=== PATIENT | female | born 1990 | race Caucasian/White ===

== ENCOUNTER 2016-06-25 12:22 | Inpatient (IN) | payer OTHER, SELFPAY ==
[2016-06-25] VITALS (42 sets, daily range): BP systolic 72–135; BP diastolic 38–88
[~2016-06-25] VITALS: Ht 167.6 cm; Wt 103.0 kg
[2016-06-25] MEDS ORDERED: ACET50TA PO (12:51)
[2016-06-25] MEDS ORDERED: VITAPRTA PO (12:51)
[2016-06-25] MEDS ORDERED: LOVE1INJ SC (13:18)
[2016-06-25] MEDS ORDERED: ASPI1TAB PO (13:18)
[2016-06-25] MEDS ORDERED: LR 1,000 ML IV SCH (13:25)
[2016-06-25] MEDS ORDERED: LACTATED RINGER'S 1000 ML IV STA (13:25)
[2016-06-25] MEDS: LR 1,000 ML IV SCH ×2 (13:25→21:25)
[2016-06-25] MEDS ORDERED: OXYTOCIN DRIP 30 UNITS in APPROPRIATE DILUENT 1 EA IV SCH (13:30)
[2016-06-25 14:19] LABS: MEAN CORPUSCULAR HEMOGLOBIN 21.2 pg (27.0-33.0); MEAN CORPUSCULAR HGB CONC 30.8 g/dl (32.0-36.5); MEAN CORPUSCULAR VOLUME 68.7 fl (80.0-96.0); RED CELL DISTRIBUTION WIDTH 15.9 % (11.5-14.5); WHITE BLOOD COUNT 9.3 K/mm3 (4.0-10.0)
[2016-06-25] MEDS ORDERED: FENTANYL 2MCG/ML ROPIVACAINE 0.2% IN 0.9% NACL 200ML IVBAG As Ordered ONE (19:02)
[2016-06-25] MEDS ORDERED: diphenhydrAMINE INJ 50MG/ML VIAL (J1200) IV PRN (20:30)
[2016-06-25] MEDS ORDERED: REFRIGERATOR IV KEYS XX PRN (20:30)
[2016-06-25] MEDS ORDERED: FENTANYL/ROPIVACAINE/NACL BAG 200 ML EPIDURAL SCH (20:30)
[2016-06-25] MEDS ORDERED: EPIDURAL COMMENT XX SCH (20:30)
[2016-06-25] MEDS ORDERED: NALOXONE INJ 0.4 MG/1 ML VIAL (J2310) IV PRN (20:30)
[2016-06-25] MEDS ORDERED: LACTATED RINGER'S 1000 ML IV PRN (20:30)
[2016-06-25] MEDS ORDERED: ePHEDrine SULFATE 25 MG/5 ML(5MG/ML) SYRINGE IV PRN (20:30)
[2016-06-25] MEDS ORDERED: EPIDURAL/PCA KEYS XX PRN (20:30)
[2016-06-25] MEDS ORDERED: ONDANSETRON 4MG/2ML VIAL (J2405) IV PRN ×2 (20:30→22:15)
[2016-06-25] MEDS ORDERED: RHOGAM 300 MCG (1500 IU) INJ (J2790) IM SCH (22:15)
[2016-06-25] MEDS ORDERED: OXYTOCIN INJ 10 UNITS/ML VIAL (J2590) IM ONE (22:15)
[2016-06-25] MEDS ORDERED: METHYLERGONOVINE MALEATE 0.2 MG TAB PO PRN (22:15)
[2016-06-25] MEDS ORDERED: miSOPROStol 25 MCG 1/4 TAB (S0191) PR ONE (22:15)
[2016-06-25] MEDS ORDERED: PROMETHAZINE 25 MG TAB PO PRN (22:15)
[2016-06-25] MEDS ORDERED: MEASLES,MUMPS,RUBELLA VACCINE INJ (MMR-II) (90707) SC SCH (22:15)
[2016-06-25] MEDS ORDERED: DIBUCAINE 1% OINTMENT 30GM TOP PRN (22:15)
[2016-06-25] MEDS ORDERED: DOCUSATE SODIUM 100 MG CAP PO PRN (22:15)
[2016-06-25] MEDS: ACETAMINOPHEN 500 MG TAB PO PRN (22:23)
[2016-06-26] VITALS (7 sets, daily range): BP systolic 102–133; BP diastolic 56–80
[2016-06-26 01:16] LABS: MEAN CORPUSCULAR HGB CONC 30.3 g/dl (32.0-36.5); MEAN CORPUSCULAR VOLUME 69.4 fl (80.0-96.0); RED CELL DISTRIBUTION WIDTH 15.8 % (11.5-14.5); WHITE BLOOD COUNT 15.9 K/mm3 (4.0-10.0)
[2016-06-26] MEDS: PRENATAL VITAMIN TAB PO SCH (07:23)
[2016-06-26] MEDS: IBUPROFEN 800 MG TAB PO PRN ×2 (07:23→19:27)
[2016-06-26 11:54] LABS: DIFF SLIDE NUMBER 89; MEAN CORPUSCULAR HEMOGLOBIN 21.3 pg (27.0-33.0); MEAN CORPUSCULAR HGB CONC 30.9 g/dl (32.0-36.5); PLATELET COUNT, AUTOMATED 238 k/mm3 (150-450); RED CELL DISTRIBUTION WIDTH 16.2 % (11.5-14.5)
[2016-06-26 13:30] LABS: ANISOCYTOSIS 2+; BASOPHILS 1 % (0-4); EOSINOPHILS 1 % (0-5); POIKILOCYTOSIS 1+
[2016-06-26 13:31] LABS: MICROCYTOSIS 2+
[2016-06-27] VITALS (9 sets, daily range): BP systolic 106–136; BP diastolic 58–84
[2016-06-27] MEDS: ACETAMINOPHEN 500 MG TAB PO PRN (00:37)
[2016-06-27] MEDS ORDERED: miSOPROStol 200 MCG TAB (S0191) PR ONE (02:30)
[2016-06-27 07:01] LABS: BASO % 0.5 % (0.0-1.0); EOS # 0.1 K/mm3 (0.0-0.50); EOS % 1.3 % (0.0-3.0); LARGE UNSTAINED CELL # 0.1 K/mm3 (0.0-0.4); LARGE UNSTAINED CELL % 1.1 % (0.0-4.0); LYMPH # 2.2 K/mm3 (1.5-6.5); LYMPH % 19.6 % (24.0-44.0); MEAN CORPUSCULAR HEMOGLOBIN 23.1 pg (27.0-33.0); MEAN CORPUSCULAR HGB CONC 31.6 g/dl (32.0-36.5); MONO # 0.5 K/mm3 (0.0-0.8); MONO % 4.7 % (0.0-5.0); NEUTROPHILS # 7.6 K/mm3 (1.8-7.7); NEUTROPHILS % 72.7 % (36.0-66.0); PLATELET COUNT, AUTOMATED 237 k/mm3 (150-450); RED CELL DISTRIBUTION WIDTH 17.8 % (11.5-14.5); WHITE BLOOD COUNT 10.4 K/mm3 (4.0-10.0)
[2016-06-27] MEDS: PRENATAL VITAMIN TAB PO SCH (08:16)
[2016-06-27] MEDS ORDERED: NS 1,000 ML IV SCH (10:43)
[2016-06-27] MEDS ORDERED: diphenhydrAMINE 25 MG CAP PO ONE (10:45)
[2016-06-27] MEDS: IBUPROFEN 800 MG TAB PO PRN (14:05)
[2016-06-27] MEDS ORDERED: COLA100C3 PO (18:33)
[2016-06-27] MEDS ORDERED: IBUP-1114 PO (18:33)
== END 2016-06-27 18:49 | disposition home or self-care (01) | DRG 774 ==
LOC: M LDI 12:22 → M OBS 06-26 01:52
PROVIDERS: ADMIT Student in an Organized Health Care Education/Training Program; ATTEND Student in an Organized Health Care Education/Training Program
PROC: 10E0XZZ Delivery of Products of Conception, External Approach (ICD-10-PCS; principal; 2016-06-25)
PROC: 3E033VJ Introduction of Other Hormone into Peripheral Vein, Percutaneous Approach (ICD-10-PCS; 2016-06-25)
PROC: 30233N1 Transfusion of Nonautologous Red Blood Cells into Peripheral Vein, Percutaneous Approach (ICD-10-PCS; 2016-06-26)
DX: O72.1 Other immediate postpartum hemorrhage (principal); Z37.0 Single live birth; Z3A.39 39 weeks gestation of pregnancy; Z87.59 Personal history of other complications of pregnancy, childbirth and the puerperium

== ENCOUNTER 2017-02-23 11:48 | Day surgery (SDC) | payer OTHER ==
[~2017-02-23] VITALS: Ht 167.6 cm; Wt 95.9 kg
[~2017-02-23 11:48] MED LIST: ACET50TA PO; ASPI1TAB PO; COLA100C5 PO; IBUP-1114 PO; LOVE1INJ SC; VITAPRTA PO
[2017-02-23] MEDS ORDERED: LR 1,000 ML IV ONE (12:00)
[2017-02-23] MEDS ORDERED: LIDOCAINE 1% MDV 20ML VIAL SQ PRN (12:00)
[2017-02-23] MEDS ORDERED: no medications (12:29)
[2017-02-23 12:33] LABS: MEAN CORPUSCULAR HEMOGLOBIN 24.6 pg (27.0-33.0); MEAN CORPUSCULAR HGB CONC 31.6 g/dl (32.0-36.5); MEAN CORPUSCULAR VOLUME 77.9 fl (80.0-96.0); PLATELET COUNT, AUTOMATED 391 10^3/uL (150-450); WHITE BLOOD COUNT 5.6 10^3/uL (4.0-10.0)
[2017-02-23 12:49] LABS: CONTROL LINE HCG INT CTR LINE PRESENT
[2017-02-23] MEDS ORDERED: ALBUTEROL SULFATE 2.5 MG/0.5 ML INH NEB SOLN INH ONE (13:00)
[2017-02-23] MEDS: BUPIVACAINE HCL 0.25% 30 ML VIAL As Ordered ONE ×2 (13:26→15:00)
[2017-02-23] MEDS ORDERED: dexameTHASONE 4 MG/ML 1ML VIAL (J1100) As Ordered ONE (13:56)
[2017-02-23] MEDS ORDERED: fentaNYL 100 MCG/2 ML INJECTION (J3010) As Ordered ONE (13:56)
[2017-02-23] MEDS ORDERED: MIDAZOLAM INJ 2 MG/2 ML VIAL (J2250) As Ordered ONE (13:56)
[2017-02-23] MEDS ORDERED: PROPOFOL 500 MG/50 ML VIAL As Ordered ONE (13:56)
[2017-02-23] MEDS ORDERED: GLYCOPYRROLATE INJ 0.2 MG/ML 2 ML VIAL As Ordered ONE ×2 (14:03→14:28)
[2017-02-23] MEDS ORDERED: NEOSTIGMINE 10 MG/10 ML VIAL (J2710) As Ordered ONE (14:03)
[2017-02-23] MEDS ORDERED: LIDOCAINE 2% INJ 100 MG/5 ML SDV (FOR ANES.) As Ordered ONE (14:04)
[2017-02-23] MEDS ORDERED: ONDANSETRON 4MG/2ML VIAL (J2405) As Ordered ONE ×2 (14:05→16:50)
[2017-02-23] MEDS ORDERED: ROCURONIUM BROMIDE 50 MG/5 ML VIAL As Ordered ONE (14:05)
[2017-02-23] MEDS ORDERED: ePHEDrine SULFATE 25 MG/5 ML(5MG/ML) SYRINGE As Ordered ONE (14:15)
[2017-02-23] MEDS ORDERED: DESFLURANE 240 ML INHALANT As Ordered ONE (14:17)
[2017-02-23] MEDS ORDERED: KETOROLAC 60 MG/2 ML VIAL (J1885) As Ordered ONE (14:35)
[2017-02-23] MEDS ORDERED: HYDROmorphone HCL 2 MG/ML 1ML VIAL (J1170) As Ordered ONE (14:40)
[2017-02-23] MEDS ORDERED: HYDROmorphone HCL 1 MG/ML SYRINGE (J1170) IV PRN (15:30)
[2017-02-23] MEDS ORDERED: LR 1,000 ML IV SCH (15:30)
[2017-02-23] MEDS ORDERED: PERCOCET 5MG/325MG TAB PO PRN (15:30)
[2017-02-23] MEDS ORDERED: fentaNYL 100 MCG/2 ML INJECTION (J3010) IV PRN (15:30)
[2017-02-23] MEDS ORDERED: ONDANSETRON 4MG/2ML VIAL (J2405) IV PRN (15:30)
[2017-02-23 18:52] VITALS: BP 106/51
--- NOTE | 2017-02-24 07:30 | RO ---
DATE OF PROCEDURE: 02/23/2017 PREOPERATIVE DIAGNOSIS: Satisfied parity. POSTOPERATIVE DIAGNOSIS: Satisfied parity. OPERATION PERFORMED: Bilateral laparoscopic salpingectomy. SURGEON: Dr. Clau Coreas PRACTICAL NURSE CLINICAL COORDINATOR: Dr. Alexandro Bernard CLINICAL SERVICE: SAFETY COUNSELOR. ANESTHESIA: GETA MATERIAL FORWARDED TO LABORATORY: Fallopian tubes bilateral. DESCRIPTION OF FINDINGS: Laparoscopic findings included a normal appearing uterus, fallopian tubes, ovaries, liver edge and gallbladder. There was a small window in the peritoneum in the posterior cul-de-sac, possibly resultant of endometriosis, though no specific lesions were noted. INFECTION CLASSIFICATION: 2. ESTIMATED BLOOD LOSS: 5 mL. INTRAVENOUS (IV) FLUIDS: 1100 mL lactated Ringers. URINE OUTPUT: 250 mL of clear yellow urine. INDICATION FOR OPERATION: Tania is a 26-year-old, (G) 5, para (P) 3-0-3-3, with satisfied parity. I met with her in the clinic and she stated her desire for permanent sterilization. We discussed all contraception options in detail, especially emphasizing long acting reversible contraception, and she declined all of these and strongly desires permanent sterilization. Her history is significant for three term vaginal deliveries and one nonviable delivery at 21 weeks resultant of placental abruption. With two of her term vaginal deliveries , she had hemorrhage and blood transfusions. She gave great consideration to the permanent nature of this procedure and presented to her preoperative appointment still desiring to proceed. DESCRIPTION OF OPERATION: After informed consent, the patient was taken to the operating room. General endotracheal anesthesia was established and the patient was placed in low lithotomy position. The patient was prepped and draped in the usual sterile fashion. She was placed in Trendelenburg position and a Malagon catheter was placed. Bivalved speculum was placed in the vagina and visualization of the cervix was obtained. Anterior lip of the cervix was grasped with a single tooth tenaculum. Uterus was sounded to 11 cm. The SmartCloud uterine manipulator was then placed through the cervix into the uterus. The tenaculum was removed with site hemostasis noted and the bivalved speculum was removed. At that point, she was taken out of Trendelenburg position. A 5 mm incision was made in the infraumbilical fold beneath the subcutaneous tissue. Sandra clamp was used to spread the subcutaneous tissue. 0.25% Marcaine was used to anesthetize the area. Lower abdominal wall was manually grabbed and lifted up and an Optiview trocar was placed at a 90 degrees angle. The laparoscope was advanced through the port and intra-abdominal placement was confirmed. Continuous flow carbon dioxide began to establish a pneumoperitoneum at 15 mmHg of pressure. She then had two 5 mm incisions made laterally and 5 mm trocars were placed under direct visualization through these sites. A pelvic and abdominal survey was conducted beginning at the anterior cul-de-sac and anterior portion of the uterus which were normal in appearance. Left and right fallopian tubes, round ligaments, broad ligaments and ovaries were observed with a normal appearance. Posterior cul-de-sac was observed to have a small peritoneal window, though no specific endometriosis lesions were noted. Survey of the upper abdomen revealed a normal appearing liver edge and gallbladder. At that point, we used the LigaSure device to excise the fallopian tube, ensuring that we excised just underneath the fallopian tube and maintaining good distance from the ovary so that the ovarian blood supply would not be impacted. The fallopian tubes after being excised were both removed one after another through the lateral trocars and they were sent to pathology. At that point, I removed the lateral ports under direct visualization and observed those sites to be hemostatic. Pneumoperitoneum was released prior to removal of the umbilical port. The three incisions were reapproximated with #4-0 Monocryl and Dermabond. All instruments were removed from the vagina and the patient was returned to the supine position. Malagon catheter was also removed. Sponge, lap and needle counts were correct times two. The patient was awakened from general anesthesia and taken to the recovery room in stable condition. She had tolerated the procedure well. DAVID
== END 2017-02-23 19:00 | disposition home or self-care (01) ==
LOC: M SDC 11:48
PROVIDERS: ATTEND Obstetrics & Gynecology
DX: Z30.2 Encounter for sterilization (principal); E66.9 Obesity, unspecified; Z68.33 Body mass index [BMI] 33.0-33.9, adult
CPT/HCPCS: 36415; 58661; 84703; 85027; 86850; 86870; 86900; 86901; 88302; J1100; J1170; J1885; J2250; J2405; J2710; J3010

== ENCOUNTER 2017-11-16 03:33 | Emergency (ER) | payer OTHER ==
[2017-11-16] MEDS: NS 1,000 ML IV (03:58)
[2017-11-16] MEDS: ONDANSETRON 4MG/2ML VIAL (J2405) IV (03:58)
[2017-11-16] MEDS: MORPHINE 4 MG/ML 1ML VIAL/SYRINGE (J2270) IV (03:59)
[2017-11-16 04:26] LABS: BASO # 0.1 10^3/uL (0.0-0.2); BASO % 1.1 % (0.0-1.0); EOS # 0.2 10^3/uL (0.0-0.50); EOS % 2.2 % (0.0-3.0); HEMATOCRIT 44.5 % (36.0-47.0); HEMOGLOBIN 14.9 g/dl (12.0-15.5); IMMATURE GRANULOCYTE % 0.3 % (0-3.0); LYMPH # 2.7 10^3/uL (1.5-6.5); LYMPH % 27.4 % (24.0-44.0); MEAN CORPUSCULAR HEMOGLOBIN 28.4 pg (27.0-33.0); MEAN CORPUSCULAR HGB CONC 33.5 g/dl (32.0-36.5); MEAN CORPUSCULAR VOLUME 84.9 fl (80.0-96.0); MONO # 0.7 10^3/uL (0.0-0.8); MONO % 7.3 % (0.0-5.0); NEUTROPHILS % 61.7 % (36.0-66.0); PLATELET COUNT, AUTOMATED 410 10^3/uL (150-450); RED BLOOD COUNT 5.24 10^6/uL (4.00-5.40); RED CELL DISTRIBUTION WIDTH 13.5 % (11.5-14.5); WHITE BLOOD COUNT 9.7 10^3/uL (4.0-10.0)
[2017-11-16 04:37] LABS: KETONE, URINE AUTO RFX NEGATIVE (NEGATIVE); LEUKOCYTE ESTERASE UR AUTO RFX NEGATIVE (NEGATIVE); NITRITE, URINE AUTO RFX NEGATIVE (NEGATIVE); RBC, URINE AUTO RFX 1 /HPF (0-3); SPECIFIC GRAVITY UR AUTO RFX 1.014 (1.002-1.035); SQUAM EPITHELIAL CELL UR AURFX 1 /HPF (0-6); WBC, URINE AUTO RFX 2 /HPF (0-3)
[2017-11-16 04:43] LABS: CONTROL LINE HCG INT CTR LINE PRESENT; HCG, SERUM QUALITATIVE NEGATIVE (NEGATIVE)
[2017-11-16 04:51] LABS: ALBUMIN/GLOBULIN RATIO 1.08 (1.00-1.93); ALKALINE PHOSPHATASE 62 U/L (45-117); ALT/SGPT 20 U/L (12-78); ANION GAP 9 MEQ/L (8-16); AST/SGOT 12 U/L (7-37); BILIRUBIN,DIRECT 0.1 MG/DL (0.0-0.2); BILIRUBIN,TOTAL 0.3 MG/DL (0.2-1.0); BLOOD UREA NITROGEN 11 MG/DL (7-18); CALCIUM LEVEL 9.3 MG/DL (8.5-10.1); CARBON DIOXIDE LEVEL 25 MEQ/L (21-32); CHLORIDE LEVEL 108 MEQ/L (98-107); CREATININE FOR GFR 0.91 MG/DL (0.55-1.30); GLOMERULAR FILTRATION RATE > 60.0 (>60); GLUCOSE, FASTING 115 MG/DL (70-100); LIPASE 178 U/L (73-393); POTASSIUM SERUM 3.6 MEQ/L (3.5-5.1); SODIUM LEVEL 142 MEQ/L (136-145); TOTAL PROTEIN 7.7 GM/DL (6.4-8.2)
[2017-11-16 08:01] LABS: BASO # 0.1 10^3/uL (0.0-0.2); BASO % 0.7 % (0.0-1.0); EOS % 0.3 % (0.0-3.0); IMMATURE GRANULOCYTE % 0.3 % (0-3.0); LYMPH # 1.7 10^3/uL (1.5-6.5); LYMPH % 17.4 % (24.0-44.0); MONO # 0.6 10^3/uL (0.0-0.8); MONO % 6.2 % (0.0-5.0); NEUTROPHILS # 7.3 10^3/uL (1.8-7.7); NEUTROPHILS % 75.1 % (36.0-66.0); WHITE BLOOD COUNT 9.7 10^3/uL (4.0-10.0)
== END 2017-11-16 09:39 | disposition home or self-care (01) ==
LOC: M ED 03:33
DX: K80.70 Calculus of gallbladder and bile duct without cholecystitis without obstruction (principal); R11.2 Nausea with vomiting, unspecified
CPT/HCPCS: J2270

== ENCOUNTER 2017-12-16 10:30 | Day surgery (SDC) | payer OTHER ==
[2017-12-16] MEDS: LR 1,000 ML IV (11:25)
[2017-12-16] MEDS: AMPICILLIN SOD/SULBACTAM SOD 3 GM in D5W MINI-BAG PLUS 100 ML IV (11:29)
[2017-12-16] MEDS ORDERED: GLYCOPYRROLATE INJ 0.2 MG/ML 2 ML VIAL As Ordered (13:12)
[2017-12-16] MEDS ORDERED: NEOSTIGMINE 10 MG/10 ML VIAL (J2710) As Ordered (13:13)
[2017-12-16] MEDS ORDERED: ROCURONIUM BROMIDE 50 MG/5 ML VIAL As Ordered (13:14)
[2017-12-16] MEDS ORDERED: ONDANSETRON 4MG/2ML VIAL (J2405) As Ordered (13:14)
[2017-12-16] MEDS ORDERED: fentaNYL 250 MCG/5 ML INJECTION (J3010) As Ordered (13:14)
[2017-12-16] MEDS ORDERED: LIDOCAINE 2% INJ 100 MG/5 ML SDV (FOR ANES.) As Ordered (13:14)
[2017-12-16] MEDS ORDERED: dexameTHASONE 4 MG/ML 1ML VIAL (J1100) As Ordered (13:14)
[2017-12-16] MEDS ORDERED: KETOROLAC 60 MG/2 ML VIAL (J1885) As Ordered (13:14)
[2017-12-16] MEDS ORDERED: PROPOFOL 200 MG/20 ML VIAL As Ordered (13:14)
[2017-12-16] MEDS ORDERED: MIDAZOLAM INJ 2 MG/2 ML VIAL (J2250) As Ordered (13:14)
[2017-12-16] MEDS: BUPIVACAINE HCL 0.25% 30 ML VIAL As Ordered (13:21)
[2017-12-16] MEDS: LIDOCAINE 1% SDV INJ 30 ML VIAL As Ordered (13:21)
[2017-12-16] MEDS: PERCOCET 5MG/325MG TAB PO ×2 (13:45→14:34)
[2017-12-16] MEDS: fentaNYL 100 MCG/2 ML INJECTION (J3010) IV ×4 (13:45→14:00)
[2017-12-16] MEDS ORDERED: PERCOCET 5MG/325MG TAB As Ordered (13:46)
[2017-12-16] MEDS ORDERED: fentaNYL 100 MCG/2 ML INJECTION (J3010) As Ordered (13:46)
[2017-12-16] MEDS ORDERED: ONDANSETRON 4MG/2ML VIAL (J2405) IV ×2 (14:00)
[2017-12-16] MEDS ORDERED: MORPHINE 10 MG/ML 1ML VIAL (J2270) IV (14:00)
[2017-12-16] MEDS ORDERED: NORCO, ANEXSIA 5/325MG TABLET (HYDROcodone/ACETAMINOPHEN) PO ×2 (14:00)
[2017-12-16] MEDS ORDERED: LR 1,000 ML IV (14:00)
[2017-12-16] MEDS ORDERED: KETOROLAC 30 MG/ML VIAL (J1885) IV (19:00)
== END 2017-12-16 15:45 | disposition home or self-care (01) ==
LOC: M SDC 10:30
DX: K80.10 Calculus of gallbladder with chronic cholecystitis without obstruction (principal); F41.9 Anxiety disorder, unspecified; F32.9 Major depressive disorder, single episode, unspecified; Z79.899 Other long term (current) drug therapy; Z98.51 Tubal ligation status
CPT/HCPCS: 47562

== ENCOUNTER → 2018-03-31 | Outpatient (CLI) | payer OTHER ==
[~2018-03-31] MED LIST changes: -ACET50TA PO; +MAPA500T2 PO; +NORCOTAB PO; +ZOFR4TAB14 PO; +ZOLO100T PO; +no medications
--- NOTE | 2018-03-31 18:12 | REP ---
Right ankle series: Four views. History: Injury. No prior findings: Four views of the right ankle demonstrate an intact ankle mortise. No fracture or subluxation is seen. There is a metallic orthopedic anchor in the lateral aspect of the calcaneus. Impression: No fracture seen. There is a metallic screw orthopedic anchor in the lateral aspect of the hind foot, apparently in the calcaneus. Electronically Signed by Victor Hugo Dominique MD 03/31/2018 06:58 P
--- NOTE | 2018-03-31 18:33 | REP ---
RIGHT FOOT COMPLETE: 03/31/2018. Clinical history: Trauma, top of the foot 10 days ago. Findings: The patient had an ankle series this date. Findings: Four views show a metallic anchor overlying lateral aspect of the calcaneus just inferior posterior to the inferior margin of the posterior subtalar joint as on the ankle series. Talonavicular and calcaneocuboid joints are normal. Subtalar joints grossly intact. There is no fracture of the talus, calcaneus. Tarsal bones and their articulations and the metatarsals were all intact. The MTP and IP joints grossly intact without fracture. No heel spurs. Some minor soft tissue swelling distal forefoot on the lateral view. Impression: 1. Old postoperative changes on the lateral aspect of the calcaneus without evidence of an acute fracture, avulsion, subluxation, dislocation or other acute bony finding. 2. There is some minor soft tissue swelling of the distal forefoot on the lateral view. Electronically Signed by Will Hodge MD 04/02/2018 11:45 A
== END ==
LOC: M LRY 15:25
PROVIDERS: ATTEND Nurse Practitioner Family
DX: S89.91XA Unspecified injury of right lower leg, initial encounter (principal)